=== PATIENT | male | born 1945 | race Caucasian/White ===

== ENCOUNTER 2020-10-06 11:18 | Outpatient (CLI) | payer OTHER ==
[2020-10-06 18:02] LABS: SARS-CoV-2 PCR by NAA Not Detected (NotDetected)
== END 2020-10-06 11:19 | disposition home or self-care (01) ==
LOC: CSHLAB 11:18
PROVIDERS: ATTEND Internal Medicine Gastroenterology
DX: Z20.822 Contact with and (suspected) exposure to COVID-19 (principal); K63.5 Polyp of colon
CPT/HCPCS: 87635; U0003; U0005

== ENCOUNTER 2020-10-11 09:03 | Day surgery (SDC) | payer OTHER ==
[2020-10-07 12:18] VITALS: BMI 29.2
[2020-10-11] MEDS ORDERED: Lidocaine 1% MPF 2 ML VIAL ONE (09:27)
[2020-10-11] MEDS ORDERED: PROPOFOL 40 ML ONE (10:28)
== END 2020-10-11 12:05 | disposition home or self-care (01) ==
LOC: CSHSDC 09:03
PROVIDERS: ATTEND Internal Medicine Gastroenterology
DX: Z12.11 Encounter for screening for malignant neoplasm of colon (principal); K63.5 Polyp of colon; K57.30 Diverticulosis of large intestine without perforation or abscess without bleeding
CPT/HCPCS: 88305; J2704